=== PATIENT | male | born 1965 | race African-American/Black ===

== ENCOUNTER 2017-07-21 21:44 | Emergency (ER) | payer OTHER, MEDICAID ==
[~2017-07-21] VITALS: Ht 177.8 cm; Wt 118.8 kg
[2017-07-21 22:20] VITALS: BP 153/90
--- NOTE | 2017-07-21 22:38 | NUR ---
PT TAKEN TO BED 3
--- NOTE | 2017-07-21 22:42 | NUR ---
Dr. Parekh evaluating patient at bedside.
--- NOTE | 2017-07-21 22:42 | NUR ---
52/M PRESENTS TO ER C/0 BLEEDING TO SHUNT SITE AT LEFT AC. PT HAS LEFT ARM WRAPPED WITH MODERATE AMOUNT OF BLOOD ON DRESSING. SMALL AMOUNT OF ACTIVE BLEEDING CONTROLLED BY DRESSING. NO DIZZYNESS, HEADACHE, N/V/D. ER MD NOTIFIED OF PT STATUS. VSS. COMFORT NEEDS MET.
[2017-07-21 23:12] VITALS: BP 153/90
--- NOTE | 2017-07-21 23:12 | NUR ---
Patient discharged with v/s stable. Written and verbal after care instructions given and explained. Patient verbalized understanding. Ambulatory with steady gait. All questions addressed prior to discharge. Advised to follow up with PMD.
== END 2017-07-21 23:12 | disposition home or self-care (01) ==
LOC: MED 21:44
DX: Z48.02 Encounter for removal of sutures (principal)
CPT/HCPCS: 99283